=== PATIENT | female | born 1990 | race Caucasian/White ===

== ENCOUNTER 2016-10-27 10:18 | Emergency (ER) | payer SELFPAY ==
[2016-10-27 10:33] VITALS: BP 120/78
--- NOTE | 2016-10-27 18:48 | Emergency Department Report ---
Entered by JIM PALAFOX, acting as scribe for HEIDI WEST NP. ED General Adult HPI - General Chief complaint: Skin Rash Stated complaint: BLISTERING LIP/POSS BURN Time Seen by Provider: 10/27/16 11:13 Source: patient Mode of arrival: Ambulatory Limitations: No Limitations - History of Present Illness Initial comments: This is a 26 y/o female, nontoxic, well nourished in appearance, no acute signs of distress presents with blisters on lips that began 2 days ago and became worse today. Associated symptoms include pain but she denies fever and chills. Pain is described as achy and 1/10 on severity scale. No alleviating factors. Patient states that she applied apple cider vinegar for blisters and it made it worse. Patient stated she has "black spots on lips and tried to remove them with apple cider vinegar". Pt stated she saw this on youtube video and google. Patient denies any CP, SOB, fever, chills, headache, pus, drainage, numbness, tingling, abdominal pain. Patient denies hx of cold sores. NKDA. Onset/Timin -: days(s) Location: mouth Radiation: non-radiation Severity scale (0 -10): 1 Quality: aching Consistency: constant Improves with: none Worsens with: none Associated Symptoms: rash (blisters on lips with pain). denies: confusion, chest pain, cough, diaphoresis, fever/chills, headaches, loss of appetite, malaise, nausea/vomiting, seizure, shortness of breath, syncope, weakness Treatments Prior to Arrival: other (apple cider vinegar) - Related Data Allergies Allergy/AdvReac Type Severity Reaction Status Date / Time No Known Allergies Allergy Verified 01/30/13 20:55 ED Review of Systems Comment: All other systems reviewed and negative Constitutional: denies: chills, fever Eyes: denies: eye pain, eye discharge, vision change ENT: denies: ear pain, throat pain Respiratory: denies: cough, shortness of breath, wheezing Cardiovascular: denies: chest pain, palpitations Endocrine: no symptoms reported Gastrointestinal: denies: abdominal pain, nausea, diarrhea Genitourinary: denies: urgency, dysuria, discharge Musculoskeletal: denies: back pain, joint swelling, arthralgia Skin: rash (blisters on lips with pain) Neurological: denies: headache, weakness, paresthesias Psychiatric: denies: anxiety, depression Hematological/Lymphatic: denies: easy bleeding, easy bruising ED Past Medical Hx - Past Medical History Previous Medical History?: No Hx Psychiatric Treatment: No - Surgical History Past Surgical History?: No - Social History Smoking Status: Never Smoker Substance Use Type: Alcohol, Other ED Physical Exam - General Limitations: No Limitations General appearance: alert, in no apparent distress - Head Head exam: Present: atraumatic, normocephalic, normal inspection - Eye Eye exam: Present: normal appearance, PERRL, EOMI. Absent: scleral icterus, conjunctival injection, nystagmus - ENT ENT exam: Present: normal exam, normal orophraynx, mucous membranes moist, TM's normal bilaterally, normal external ear exam - Neck Neck exam: Present: normal inspection, full ROM. Absent: tenderness, meningismus, lymphadenopathy, thyromegaly - Respiratory Respiratory exam: Present: normal lung sounds bilaterally. Absent: respiratory distress, wheezes, rales, rhonchi, stridor, chest wall tenderness, accessory muscle use, decreased breath sounds, prolonged expiratory - Cardiovascular Cardiovascular Exam: Present: regular rate, normal rhythm, normal heart sounds. Absent: systolic murmur, diastolic murmur, rubs, gallop - GI/Abdominal GI/Abdominal exam: Present: soft, normal bowel sounds. Absent: distended, tenderness, guarding, rebound, rigid - Extremities Exam Extremities exam: Present: normal inspection, full ROM, normal capillary refill. Absent: tenderness, pedal edema, joint swelling, calf tenderness - Back Exam Back exam: Present: normal inspection, full ROM. Absent: tenderness, CVA tenderness (R), CVA tenderness (L), muscle spasm, paraspinal tenderness, vertebral tenderness, rash noted - Neurological Exam Neurological exam: Present: alert, oriented X3, CN II-XII intact, normal gait. Absent: altered, abnormal gait - Psychiatric Psychiatric exam: Present: normal affect, normal mood - Skin Skin exam: Present: warm, dry, intact, normal color, other (0.1 cm well rounder blister x2 to bottom lips. no pus. No drainge. No redness. No lesions. No crusting. No swelling.). Absent: rash, cyanosis, diaphoretic, erythema, urticaria, vesicles, petechiae, pallor, abrasion, ecchymosis ED Course Vital Signs 10/27/16 10:29 Temperature 98.5 F Pulse Rate 81 Respiratory 16 Rate Blood Pressure 120/78 O2 Sat by Pulse 99 Oximetry ED Medical Decision Making - Medical Decision Making Ed course: This is a 26-year-old female that presents with blisters x2 on lips s /p applicaiton of apple cider vinegar 1- after my physical exam, patient was instructed to apply OTC chop stick to the area. 2- Patient was instructed to follow up with her primary care doctor in 3-5 days or if the blisters get worse report back to emergency room as was possible. 3- at time time of discharge, the patient does not seem toxic or ill in appearance. No acute signs of distress noted. Patient agrees to discharge treatment plan of care. No further questions noted by the patient. ED Disposition Clinical Impression: Blister of lip Disposition: DC-01 TO HOME OR SELFCARE Is pt being admited?: No Does the pt Need Aspirin: No Condition: Stable Additional Instructions: You can take [id number] chopstick and apply as needed to her lips. Follow up with your primary care doctor in 3-5 days or if the blisters get worse report back to emergency room as was possible. Referrals: PRIMARY CARE, [Primary Care Provider] - 3-5 Days [facility] [Outside] - 3-5 Days [facility] [Outside] - 3-5 Days YESENIA ROSARIO MD [Staff Physician] - 3-5 Days Forms: Work/School Release Form(ED) This documentation as recorded by the JAVY navarro ELIZABETH,accurately reflects the service I personally performed and the decisions made by me,HEIDI WEST, REGGIE.
== END 2016-10-27 11:46 | disposition home or self-care (01) ==
LOC: ED 10:18
DX: K13.0 Diseases of lips (principal)
CPT/HCPCS: 99283

== ENCOUNTER 2017-05-31 02:07 | Emergency (ER) | payer SELFPAY ==
[2017-05-31 02:56] VITALS: BP 121/82
[2017-05-31 03:59] LABS: Alanine Aminotransferase 9 units/L (7-56); Albumin 4.4 g/dL (3.9-5); BUN/Creatinine Ratio 25; Blood Urea Nitrogen 10 mg/dL (7-17); Calcium 9.6 mg/dL (8.4-10.2); Hemolysis Index 22
[2017-05-31 04:12] LABS: Basophils % (Auto) 0.1 % (0.0-1.8); Eosinophils # (Auto) 0.1 K/mm3 (0.0-0.4); Eosinophils % (Auto) 0.7 % (0.0-4.3); Hematocrit 39.1 % (30.3-42.9); Hemoglobin 13.2 gm/dl (10.1-14.3); Lymphocytes # (Auto) 1.2 K/mm3 (1.2-5.4); Lymphocytes % (Auto) 7.7 % (13.4-35.0); Mean Corpuscular HGB Conc 34 % (30-34); Mean Corpuscular Hemoglobin 29 pg (28-32); Mean Corpuscular Volume 87 fl (79-97); Monocytes # (Auto) 0.6 K/mm3 (0.0-0.8); Monocytes % (Auto) 4.1 % (0.0-7.3); Platelet Count 359 K/mm3 (140-440); Red Blood Count 4.49 M/mm3 (3.65-5.03); Red Cell Distribution Width 13.3 % (13.2-15.2)
[2017-05-31 08:53] LABS: HCG Qualitative,Urine Negative (Negative)
[2017-05-31 08:55] LABS: Bacteria,Urine 2+ /HPF (Negative); Bilirubin,Urine NEG (Negative); Blood,Urine NEG (Negative); Color,Urine Amber (Yellow); Mucus,Urine 3+ /HPF; Nitrite,Urine NEG (Negative); Urobilinogen,Urine < 2.0 mg/dL (<2.0)
[2017-05-31] MEDS ORDERED: ZOFRAN IV ONE ×2 (16:05→16:27)
[2017-05-31] MEDS ORDERED: NACL 0.9% 1000 ML 1,000 ML IV ONE ×2 (16:05→16:27)
[2017-05-31] MEDS ORDERED: ALUM-MAG HYDROX-SIMETH 200-200-20MG/5ML PO ONE (16:06)
[2017-05-31] MEDS ORDERED: LIDOCAINE VISCOUS 2% PO ONE (16:06)
[2017-05-31] MEDS ORDERED: PEPCID PO ONE (16:06)
[2017-05-31] MEDS ORDERED: TORADOL IV ONE (16:11)
[2017-05-31] MEDS ORDERED: MERREM 1,000 MG in NACL 0.9% 100 ML IV ONE (16:11)
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
== END 2017-05-31 19:28 | disposition home or self-care (01) ==
LOC: ED 02:07
DX: K52.9 Noninfective gastroenteritis and colitis, unspecified (principal)
CPT/HCPCS: 36415; 80053; 81001; 81025; 82150; 85025; 87400; 96361; 96374; 99283; J2405; J7030